=== PATIENT | female | born 2000 | race Hispanic/Latino ===

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

== ENCOUNTER 2018-01-23 07:42 | Emergency (ER) | payer SELFPAY ==
--- NOTE | 2018-01-23 08:29 | EDPHYS ---
Physician Documentation [facility] Name: Theresa Stewart Age: 17 yrs Sex: Female : 2000 Arrival Date: 01/23/2018 Time: 07:45 Bed 11 Private MD: None, None ED Physician Gallo Collier HPI: 01/23 08:25 This 17 yrs old Female presents to ER via Ambulatory with complaints of Sore jr8 Throat. 08:25 The patient presents with sore throat. The patient describes throat pain as burning, jr8 constant. Onset: The symptoms/episode began/occurred acutely, yesterday. Severity of symptoms: At their worst the symptoms were moderate, in the emergency department the symptoms are unchanged. Modifying factors: The symptoms are alleviated by nothing, the symptoms are aggravated by swallowing, Patient's oral intake status: good. Associated signs and symptoms: The patient has no apparent associated signs or symptoms. The patient has not experienced similar symptoms in the past. The patient has not recently seen a physician. Noticed blisters on left foot as well that happened several days before this. Denies rash or lesions anywhere else . 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 - Social history:: Smoking status: Patient/guardian denies using tobacco. - Ebola Screening: : Patient negative for fever greater than or equal to 101.5 degrees Fahrenheit, and additional compatible Ebola Virus Disease symptoms Patient denies exposure to infectious person Patient denies travel to an Ebola-affected area in the 21 days before illness onset No symptoms or risks identified at this time. ROS: 08:25 Eyes: Negative for injury, pain, redness, and discharge, Neck: Negative for injury, jr8 pain, and swelling, Cardiovascular: Negative for chest pain, palpitations, and edema, Respiratory: Negative for shortness of breath, cough, wheezing, and pleuritic chest pain, Abdomen/GI: Negative for abdominal pain, nausea, vomiting, diarrhea, and constipation, Back: Negative for injury and pain, MS/Extremity: Negative for injury and deformity, Neuro: Negative for headache, weakness, numbness, tingling, and seizure. 08:25 ENT: Positive for sore throat, Negative for drainage from ear(s), ear pain, tinnitus, nasal discharge, rhinorrhea, sinus congestion, difficulty swallowing, difficulty handling secretions. 08:25 Skin: Positive for lesions, of the left foot. Exam: 08:25 Head/Face: Normocephalic, atraumatic. Eyes: Pupils equal round and reactive to light, jr8 extra-ocular motions intact. Lids and lashes normal. Conjunctiva and sclera are non-icteric and not injected. Cornea within normal limits. Periorbital areas with no swelling, redness, or edema. Neck: Trachea midline, no thyromegaly or masses palpated. Anterior cervical lymphadenopathy present and tender along with submanibular lymphadenopathy. Supple, full range of motion without nuchal rigidity, or vertebral point tenderness. No Meningismus. Cardiovascular: Regular rate and rhythm with a normal S1 and S2. No gallops, murmurs, or rubs. Normal PMI, no JVD. No pulse deficits. Respiratory: Lungs have equal breath sounds bilaterally, clear to auscultation and percussion. No rales, rhonchi or wheezes noted. No increased work of breathing, no retractions or nasal flaring. Abdomen/GI: Soft, non-tender, with normal bowel sounds. No distension or tympany. No guarding or rebound. No evidence of tenderness throughout. Back: No spinal tenderness. No costovertebral tenderness. Full range of motion. MS/ Extremity: Pulses equal, no cyanosis. Neurovascular intact. Full, normal range of motion. Neuro: Awake and alert, GCS 15, oriented to person, place, time, and situation. Cranial nerves II-XII grossly intact. Motor strength 5/5 in all extremities. Sensory grossly intact. Cerebellar exam normal. Normal gait. 08:25 ENT: External ear(s): are unremarkable, Ear canal(s): are normal, clear, TM's: are normal, no evidence of bulging, no dullness, no erythema, no fluid levels, no hemotympanum, no rupture, normal bony landmarks, normal mobility, Nose: External nose: no obvious acute abnormality, Nasal septum: is midline, Nasal mucosa: moist, Turbinates: are normal, Mouth: Lips: moist, Oral mucosa: pink and intact, moist, Gums: pink, Tongue: is moist, Posterior pharynx: Airway: patent, Tonsils: bilaterally enlarged, with erythema, with exudate, no ulcerations, Uvula: midline, non-edematous, no erythema, swelling, is not appreciated, erythema, that is moderate. 08:25 Skin: Patient has scabbed blistering lesions to sole of left foot. No other rash or lesions noted anywhere else on patients body. Lesions are tender. Mild erythema around them . Vital Signs: 08:08 BP 103 / 65; Pulse 108; Resp 16 S; Temp 99.2(O); Pulse Ox 98% on R/A; iw MDM: 08:06 Patient medically screened. [facility] 08:25 Data reviewed: vital signs, nurses notes, lab test result(s), and as a result, I will jr8 discharge patient. Data interpreted: Pulse oximetry: on room air is 98 %. Interpretation: normal. Counseling: I had a detailed discussion with the patient and/or guardian regarding: the historical points, exam findings, and any diagnostic results supporting the discharge/admit diagnosis, lab results, the need for outpatient follow up, a family practitioner, to return to the emergency department if symptoms worsen or persist or if there are any questions or concerns that arise at home. 01/23 08:23 Order name: Strep seb Administered Medications: No medications were administered Disposition: 17:43 Co-signature as Attending Physician, Gallo Collier MD I agree with the assessment and kdr plan of care. Disposition: 01/23/18 08:29 Discharged to Home. Impression: Other local infections of skin and subcutaneous tissue, Acute tonsillitis. - Condition is Stable. - Discharge Instructions: Tonsillitis. - Prescriptions for Augmentin 875- 125 mg Oral Tablet - take 1 tablet by ORAL route every 12 hours for 10 days; 20 tablet. Bactroban 2 % Topical Ointment - Apply to affected area 1 application by TOPICAL route every 12 hours; 30 gram. - Medication Reconciliation Form, Thank You Letter, Antibiotic Education, Prescription Opioid Use form. - Follow up: Private Physician; When: 2 - 3 days; Reason: Recheck today's complaints, Continuance of care, Re-evaluation by your physician. - Problem is new. - Symptoms have improved. Signatures: Dispatcher [employer] EDBuddy Ferminin, MD MD kdr Pearl Mullen, RN RN Chalino Hernandez PA PA jr8 Car Saunders, RN RN jb4 Corrections: (The following items were deleted from the chart) 08:41 08:29 01/23/2018 08:29 Discharged to Home. Impression: Other local infections of skin jb4 and subcutaneous tissue; Acute tonsillitis. Condition is Stable. Forms are Medication Reconciliation Form, Thank You Letter, Antibiotic Education, Prescription Opioid Use. Follow up: Private Physician; When: 2 - 3 days; Reason: Recheck today's complaints, Continuance of care, Re-evaluation by your physician. Problem is new. Symptoms have improved. jr8
--- NOTE | 2018-01-23 08:29 | ER ---
Nurse's Notes [facility] Name: Theresa Stewart Age: 17 yrs Sex: Female : 2000 Arrival Date: 01/23/2018 Time: 07:45 Bed 11 Private MD: None, None Diagnosis: Other local infections of skin and subcutaneous tissue;Acute tonsillitis Presentation: 01/23 08:06 Presenting complaint: Patient states: has had sore throat since last night, no fever + iw chills, also has blisters on bottom of left foot since Friday. Transition of care: patient was not received from another setting of care. Onset of symptoms was January 23, 2018. Risk Assessment: Do you want to hurt yourself or someone else? Patient reports no desire to harm self or others. Initial Sepsis Screen: Does the patient meet any 2 criteria? No. Patient's initial sepsis screen is negative. Does the patient have a suspected source of infection? No. Patient's initial sepsis screen is negative. Care prior to arrival: None. 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 - Social history:: Smoking status: Patient/guardian denies using tobacco. - Ebola Screening: : Patient negative for fever greater than or equal to 101.5 degrees Fahrenheit, and additional compatible Ebola Virus Disease symptoms Patient denies exposure to infectious person Patient denies travel to an Ebola-affected area in the 21 days before illness onset No symptoms or risks identified at this time. Screenin:10 Abuse screen: Denies threats or abuse. Nutritional screening: No deficits noted. jb4 Tuberculosis screening: No symptoms or risk factors identified. Fall Risk None identified. Assessment: 08:10 General: Appears in no apparent distress. comfortable, Behavior is calm, cooperative, jb4 appropriate for age. Pain: Complains of pain in left foot, throat Pain does not radiate. Pain currently is 5 out of 10 on a pain scale. at worst was 8 out of 10 on a pain scale. Quality of pain is described as stabbing, Pain began 1 day ago. Is intermittent. Neuro: Level of Consciousness is awake, alert, obeys commands, Oriented to person, place, time, situation. Cardiovascular: Heart tones S1 S2 present Patient's skin is warm and dry. Respiratory: Airway is patent Respiratory effort is even, unlabored, Breath sounds are clear bilaterally. Denies shortness of breath labored breathing. GI: No signs and/or symptoms were reported involving the gastrointestinal system. : No signs and/or symptoms were reported regarding the genitourinary system. EENT: Throat is reddened has enlarged tonsils with gag reflex present. Derm: Skin is dry, Skin is normal, Skin temperature is warm Blisters on the sole of the left foot. Musculoskeletal: No signs and/or symptoms reported regarding the musculoskeletal system. Vital Signs: 08:08 BP 103 / 65; Pulse 108; Resp 16 S; Temp 99.2(O); Pulse Ox 98% on R/A; iw ED Course: 07:45 Patient arrived in ED. mr 07:45 None, None is Private Physician. mr 07:58 Pearl Mullen, RN is Primary Nurse. iw 08:06 Chalino White PA [facility]. jr8 08:06 Gallo Collier MD is Attending Physician. jr8 08:08 Triage completed. iw 08:08 Arm band placed on. iw 08:10 Patient has correct armband on for positive identification. Bed in low position. Call jb4 light in reach. Adult w/ patient. Pulse ox on. NIBP on. 08:25 Strep swab sent to lab. jb4 08:40 No provider procedures requiring assistance completed. Patient did not have IV access jb4 during this emergency room visit. Administered Medications: No medications were administered Outcome: 08:29 Discharge ordered by . jr8 08:40 Discharged to home ambulatory. jb4 08:40 Condition: stable 08:40 Discharge instructions given to patient, family, Instructed on discharge instructions, follow up and referral plans. medication usage, Demonstrated understanding of instructions, follow-up care, medications, Prescriptions given X 2. 08:41 Patient left the ED. jb4 Signatures: Trina Granados mr Pearl Mullen, SANJANA RN Chalino White PA PA jr8 Car Saunders RN RN jb4
== END 2018-01-23 08:41 | disposition home or self-care (01) ==
LOC: ER 07:42
DX: J03.90 Acute tonsillitis, unspecified (principal); L08.89 Other specified local infections of the skin and subcutaneous tissue
CPT/HCPCS: 87081; 99283

== ENCOUNTER 2021-04-24 16:32 | Emergency (ER) | payer SELFPAY ==
[2021-04-24 16:55] LABS: Urine Blood 3+ (Negative); Urine Glucose Negative (Negative); Urine Protein 2+ (Negative); Urine Specific Gravity 1.025 (1.005-1.030)
[2021-04-24 17:33] LABS: Urine Bacteria <20 /HPF (<20); Urine Mucus 1+ /HPF (NONE SEEN)
--- NOTE | 2021-04-24 17:44 | EDPHYS ---
Physician Documentation [facility] Name: Theresa Stewart Age: 20 yrs Sex: Female : 2000 Arrival Date: 04/24/2021 Time: 16:42 Bed 12 Private MD: ED Physician Jamal Knott HPI: 04/24 17:54 This 20 yrs old Female presents to ER via Ambulatory with complaints of Pain kb With Urination. 17:54 The patient presents with urinary symptoms, dysuria, hematuria. Onset: The kb symptoms/episode began/occurred yesterday. Modifying factors: The symptoms are alleviated by nothing, the symptoms are aggravated by urinating. Associated signs and symptoms: Pertinent positives: dysuria, hematuria, Pertinent negatives: fever. Severity of symptoms: At their worst the symptoms were mild, in the emergency department the symptoms are unchanged. The patient has not experienced similar symptoms in the past. The patient has not recently seen a physician. 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 - Social history:: Smoking status: Patient denies any tobacco usage or history of. Patient uses alcohol, occasionally. ROS: 17:54 Constitutional: Negative for fever, chills, and weight loss. kb 17:54 : Positive for urinary symptoms, hematuria, burning with urination. 17:54 All other systems are negative. Exam: 17:55 Constitutional: This is a well developed, well nourished patient who is awake, alert, kb and in no acute distress. Head/Face: Normocephalic, atraumatic. ENT: Moist Mucous membranes Respiratory: Respirations even and unlabored. No increased work of breathing, no retractions or nasal flaring. Abdomen/GI: Soft, non-tender. No distention Skin: Warm, dry with normal turgor. Normal color. MS/ Extremity: Pulses equal, no cyanosis. Neurovascular intact. Full, normal range of motion. Neuro: Awake and alert, GCS 15, oriented to person, place, time, and situation. Moves all extremities. Normal gait. Psych: Awake, alert, with orientation to person, place and time. Behavior, mood, and affect are within normal limits. Vital Signs: 16:48 BP 128 / 94; Pulse 102; Resp 18; Temp 98.4(TE); Pulse Ox 99% on R/A; Weight 58.97 kg; ld1 Height 5 ft. 1 in. (154.94 cm); Pain 0/10; 16:48 Body Mass Index 24.56 (58.97 kg, 154.94 cm) ld1 MDM: 16:49 Patient medically screened. kb 17:46 Data reviewed: vital signs, nurses notes. Data interpreted: Pulse oximetry: on room air kb is 99 %. Interpretation: normal. Counseling: I had a detailed discussion with the patient and/or guardian regarding: the historical points, exam findings, and any diagnostic results supporting the discharge/admit diagnosis, lab results, the need for outpatient follow up, a family practitioner, to return to the emergency department if symptoms worsen or persist or if there are any questions or concerns that arise at home. 04/24 16:46 Order name: Urine Microscopic Only; Complete Time: 17:37 kb 04/24 16:55 Order name: Urine Dipstick-Ancillary; Complete Time: 17:02 EDWY 04/24 16:46 Order name: Urine Dipstick-Ancillary (obtain specimen); Complete Time: 17:34 kb 04/24 16:46 Order name: Urine Test (obtain specimen); Complete Time: 17:34 kb 04/24 17:34 Order name: Urine Culture EDMS Administered Medications: No medications were administered Disposition: 23:11 Co-signature as Attending Physician, Jamal Knott MD I agree with the assessment and ming plan of care. Disposition Summary: 04/24/21 17:42 Discharge Ordered Location: Home kb Condition: Stable kb Diagnosis - UTI/ Urinary tract infection, site not specified kb Followup: kb - With: Emergency Department - When: As needed - Reason: Worsening of condition Followup: kb - With: Private Physician - When: 2 - 3 days - Reason: Recheck today's complaints, Continuance of care, Re-evaluation by your physician Discharge Instructions: - Discharge Summary Sheet kb - Urinary Tract Infection, Adult, [id number] kb Forms: - Medication Reconciliation Form kb - Thank You Letter kb - Antibiotic Education kb - Prescription Opioid Use kb Prescriptions: - Pyridium 200 mg Oral Tablet - take 1 tablet by ORAL route every 8 hours for 3 days; 9 tablet; Refills: 0, kb Product Selection Permitted - Macrobid 100 mg Oral Capsule - take 1 capsule by ORAL route every 12 hours for 10 days; 20 capsule; Refills: kb 0, Product Selection Permitted Signatures: Dispatcher [employer] Ana Paula Schneider, PREDATORY ANIMAL TRAPPER-C YESI-Jamal Ryan MD MD cha Dibbern, Lauren, RN RN ld1
--- NOTE | 2021-04-24 17:44 | ER ---
Nurse's Notes [facility] Name: Theresa Stewart Age: 20 yrs Sex: Female : 2000 Arrival Date: 04/24/2021 Time: 16:42 Bed 12 Private MD: Diagnosis: UTI/ Urinary tract infection, site not specified Presentation: 04/24 16:48 Chief complaint: Patient states: I think I have a UTI. Burning when urinating, earlier ld1 I did have lower abdominal pain but not anymore. Coronavirus screen: At this time, the client does not indicate any symptoms associated with coronavirus-19. Ebola Screen: No symptoms or risks identified at this time. Initial Sepsis Screen: Does the patient meet any 2 criteria? No. Patient's initial sepsis screen is negative. Does the patient have a suspected source of infection? No. Patient's initial sepsis screen is negative. Risk Assessment: Do you want to hurt yourself or someone else? Patient reports no desire to harm self or others. Onset of symptoms was April 24, 2021 at 16:49. 16:48 Method Of Arrival: Ambulatory ld1 16:48 Acuity: YADIRA 4 ld1 Triage Assessment: 16:49 General: Appears in no apparent distress. comfortable, Behavior is calm, cooperative, ld1 appropriate for age. Pain: Denies pain. Neuro: Level of Consciousness is awake, alert, obeys commands, Oriented to person, place, time, situation. Cardiovascular: Capillary refill < 3 seconds Patient's skin is warm and dry. Respiratory: Airway is patent Respiratory effort is even, unlabored, Respiratory pattern is regular, symmetrical. GI: Abdomen is flat, non-distended. : Reports burning with urination, urgency, urinary frequency. 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 - Social history:: Smoking status: Patient denies any tobacco usage or history of. Patient uses alcohol, occasionally. Screenin:51 Abuse screen: Denies threats or abuse. Nutritional screening: No deficits noted. ap3 Tuberculosis screening: No symptoms or risk factors identified. Fall Risk None identified. Assessment: 17:50 General: Appears in no apparent distress. comfortable, Behavior is calm, cooperative, ap3 appropriate for age. Pain: Complains of pain in right lower quadrant and left lower quadrant. Neuro: Level of Consciousness is awake, alert, obeys commands, Oriented to person, place, time, situation, Appropriate for age Gait is steady, Speech is normal. Cardiovascular: Patient's skin is warm and dry. Respiratory: Airway is patent Respiratory effort is even, unlabored, Respiratory pattern is regular, symmetrical. : Reports pain with urination. Vital Signs: 16:48 BP 128 / 94; Pulse 102; Resp 18; Temp 98.4(TE); Pulse Ox 99% on R/A; Weight 58.97 kg; ld1 Height 5 ft. 1 in. (154.94 cm); Pain 0/10; 16:48 Body Mass Index 24.56 (58.97 kg, 154.94 cm) ld1 ED Course: 16:42 Patient arrived in ED. am2 16:46 Ana Paula Fowler FNP-C [facility]. kb 16:46 Jamal Knott MD is Attending Physician. kb 16:49 Triage completed. ld1 16:49 Arm band placed on right wrist. ld1 17:33 Latoya South, RN is Primary Nurse. ap3 17:51 Patient has correct armband on for positive identification. Call light in reach. Adult ap3 w/ patient. Pulse ox on. NIBP on. Door closed. Noise minimized. 17:51 No provider procedures requiring assistance completed. Patient did not have IV access ap3 during this emergency room visit. Administered Medications: No medications were administered Outcome: 17:42 Discharge ordered by . kb 17:51 Discharged to home ambulatory, with family. ap3 17:51 Condition: good 17:51 Discharge instructions given to patient, family, Instructed on discharge instructions, follow up and referral plans. medication usage, Demonstrated understanding of instructions, follow-up care, medications, Prescriptions given X 2. 17:52 Patient left the ED. ap3 Signatures: Ana Paula Fowler FNP-C FNP-Ckb Moreno, Amanda am2 Latoya South RN RN ap3 Malia Rosales, RN RN ld1
[2021-04-24 18:38] VITALS: BP 128/94; TEMP 98.4; O2SAT 99
== END 2021-04-24 17:52 | disposition home or self-care (01) ==
LOC: ER 16:32
DX: N39.0 Urinary tract infection, site not specified (principal)
CPT/HCPCS: 81003; 81015; 87086; 87088; 99283

== ENCOUNTER 2021-09-30 19:51 | Emergency (ER) | payer SELFPAY ==
[2021-09-30] MEDS ORDERED: TETANUS & DIPHTHERIA TOX,ADULT 0.5 ML VIAL ONE ×2 (20:51→22:08)
[2021-09-30] MEDS ORDERED: LIDOCAINE 1% MPF 5 ML VIAL ONE (20:55)
--- NOTE | 2021-09-30 21:20 | ER ---
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 Coronavirus screen: At this time, the client does not indicate any symptoms associated with coronavirus-19. Ebola Screen: No symptoms or risks identified at this time. Initial Sepsis Screen: Does the patient meet any 2 criteria? No. Patient's initial sepsis screen is negative. Does the patient have a suspected source of infection? No. Patient's initial sepsis screen is negative. Risk Assessment: Do you want to hurt yourself or someone else? Patient reports no desire to harm self or others. Onset of symptoms was September 30, 2021. 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 - Social history:: Smoking status: Patient denies any tobacco usage or history of. Screenin:46 Abuse screen: Denies threats or abuse. Denies injuries from another. Nutritional eb1 screening: No deficits noted. Tuberculosis screening: No symptoms or risk factors identified. Fall Risk None identified. Assessment: 21:45 General: Appears in no apparent distress. Behavior is calm, cooperative, appropriate eb1 for age. Pain: Complains of pain in left hand Pain currently is 5 out of 10 on a pain scale. Neuro: No deficits noted. Cardiovascular: No deficits noted. Respiratory: No deficits noted. GI: No deficits noted. No signs and/or symptoms were reported involving the gastrointestinal system. : No deficits noted. No signs and/or symptoms were reported regarding the genitourinary system. EENT: No deficits noted. No signs and/or symptoms were reported regarding the EENT system. Derm: No deficits noted. No signs and/or symptoms reported regarding the dermatologic system. Musculoskeletal: No deficits noted. No signs and/or symptoms reported regarding the musculoskeletal system. Injury Description: Laceration sustained to left hand is clean. Vital Signs: 20:15 BP 120 / 91; Pulse 98; Resp 16; Temp 99(TE); Pulse Ox 100% on R/A; Weight 54.43 kg (R); lp1 Height 5 ft. 1 in. (154.94 cm); 22:05 Pain 4/10; eb1 20:15 Body Mass Index 22.67 (54.43 kg, 154.94 cm) lp1 ED Course: 19:53 Patient arrived in ED. kz 20:16 Triage completed. lp1 20:17 Freedom Soto NP is PHCP. pm1 20:17 Hadley Becerra MD is Attending Physician. pm1 20:17 Arm band placed on. lp1 21:46 Assist provider with laceration repair on left hand using sutures. Set up tray. eb1 Performed by Freedom Soto HAT PRESSER Dressed with 4X4s, Kerlix, Patient tolerated well. 21:47 Patient has correct armband on for positive identification. eb1 21:47 Patient did not have IV access during this emergency room visit. 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 Exp: eb1 09/01/2023. Lot #: [id number]. } Route: IM; Site: right deltoid; 22:05 Follow up: Pain 4/10 Adult eb1 Outcome: 21:20 Discharge ordered by . pm1 21:47 Condition: good eb1 22:06 Discharged to home ambulatory. eb1 22:06 Discharge instructions given to patient, Instructed on discharge instructions, wound care, Demonstrated understanding of instructions, follow-up care, medications, wound care, Prescriptions given X 1. 22:06 Patient left the ED. eb1 Signatures: Janet Bernabe RN RN lp1 Freedom Soto NP HAT PRESSER pm1 Abraham, Lisa, RN RN eb1 Cooper, Cierra kz
--- NOTE | 2021-09-30 21:20 | EDPHYS ---
Physician Documentation [facility] Name: Theresa Stewart Age: 21 yrs Sex: Female : 2000 Arrival Date: 09/30/2021 Time: 19:53 Bed 11 Private MD: ED Physician Hadley Becerra HPI: 09/30 20:37 This 21 yrs old Female presents to ER via Ambulatory with complaints of pm1 Laceration To Hand - Left. 20:37 The patient or guardian reports a laceration. The complaints affect the left hand. pm1 Context: The problem was sustained at home, resulted from Cutting candy bag with a pocket knife. Onset: The symptoms/episode began/occurred just prior to arrival. Modifying factors: The symptoms are alleviated by pressure to area, the symptoms are aggravated by nothing. Associated signs and symptoms: Pertinent negatives: cyanosis distally, decreased sensation distally, numbness distally, tingling distally, Decreased range of motion. Severity of symptoms: in the emergency department the symptoms have improved. The patient has not experienced similar symptoms in the past. The patient has not recently seen a physician. 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 - Social history:: Smoking status: Patient denies any tobacco usage or history of. ROS: 20:37 Constitutional: Negative for fever, chills, and weight loss, Cardiovascular: Negative pm1 for chest pain, palpitations, and edema, Respiratory: Negative for shortness of breath, cough, wheezing, and pleuritic chest pain. 20:37 Neuro: Negative for headache, weakness, numbness, tingling, and seizure. 20:37 MS/extremity: Positive for laceration, pain, of the left hand, Negative for decreased range of motion, deformity. 20:37 Skin: Positive for laceration(s), of the left hand. 20:37 All other systems are negative. Exam: 20:37 Constitutional: This is a well developed, well nourished patient who is awake, alert, pm1 and in no acute distress. Head/Face: Normocephalic, atraumatic. 20:37 Cardiovascular: Exam negative for acute changes, Rate: normal, Rhythm: regular, Pulses: no pulse deficits are appreciated, Heart sounds: normal. 20:37 Respiratory: Exam negative for acute changes, respiratory distress, shortness of breath. 20:37 Musculoskeletal/extremity: ROM: full active range of motion, in the left little finger, left ring finger, left middle finger, left index finger and left thumb, full passive range of motion, in the left little finger, left ring finger, left middle finger, left index finger and left thumb. 20:37 Skin: Appearance: normal except for affected area, injury, laceration(s), the wound is approximately 1.5 cm(s), with a depth of 0.5 cm(s), of the Base of left thumb, that can be described as clean, no foreign body, linear, with mild bleeding. Vital Signs: 20:15 BP 120 / 91; Pulse 98; Resp 16; Temp 99(TE); Pulse Ox 100% on R/A; Weight 54.43 kg (R); lp1 Height 5 ft. 1 in. (154.94 cm); 22:05 Pain 4/10; eb1 20:15 Body Mass Index 22.67 (54.43 kg, 154.94 cm) lp1 Laceration: 21:21 Wound Repair of 1.5cm ( 0.6in ) subcutaneous laceration to Base of left thumb. Linear pm1 shaped.. Distal neuro/vascular/tendon intact. Anesthesia: Local anesthetic administered with 2 mls of 1% lidocaine. Wound prep: Extensive cleansing with betadine with hibiclenz by me, Wound irrigation with saline by ms, Wound explored extensively, Copious irrigation. Skin closed with 3 4-0 Prolene using simple sutures and sterile technique. Dressed with Neosporin, 4x4's. Patient tolerated well. MDM: 20:17 Patient medically screened. pm1 21:17 Data reviewed: vital signs. Data interpreted: Pulse oximetry: on room air is 100 %. pm1 Interpretation: normal. Counseling: I had a detailed discussion with the patient and/or guardian regarding: the historical points, exam findings, and any diagnostic results supporting the discharge/admit diagnosis, the need for outpatient follow up, to return to the emergency department if symptoms worsen or persist or if there are any questions or concerns that arise at home. 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 Exp: eb1 09/01/2023. Lot #: [id number]. } Route: IM; Site: right deltoid; 22:05 Follow up: Pain 09/30 Adult eb1 Disposition: 10/01 03:37 Co-signature as Attending Physician, Hadley Becerra MD. [facility] Disposition Summary: 09/30/21 21:20 Discharge Ordered Location: Home pm1 Problem: new pm1 Symptoms: have improved pm1 Condition: Stable pm1 Diagnosis - Laceration without foreign body of left hand pm1 Followup: pm1 - With: Emergency Department - When: As needed - Reason: Worsening of condition Followup: pm1 - With: Private Physician - When: 10 - 14 days - Reason: Recheck today's complaints, Continuance of care, Staple/Suture removal, Re-evaluation by your physician Discharge Instructions: - Discharge Summary Sheet pm1 - Laceration Care, Adult pm1 Forms: - Medication Reconciliation Form pm1 - Thank You Letter pm1 - Antibiotic Education pm1 - Prescription Opioid Use pm1 Prescriptions: - Cephalexin 500 mg Oral Capsule - take 1 capsule by ORAL route every 8 hours for 10 days; 30 capsule; Refills: 0, pm1 Product Selection Permitted Signatures: Janet eBrnabe RN RN 1 Freedom Soto, [facility] RN pm1 Lisa Rosario RN RN eb1 Hadley Becerra MD MD 7
[2021-09-30 22:43] VITALS: BP 120/91; TEMP 99; O2SAT 100
== END 2021-09-30 22:06 | disposition home or self-care (01) ==
LOC: ER 19:51
PROC: 0JQK0ZZ Repair Left Hand Subcutaneous Tissue and Fascia, Open Approach (ICD-10-PCS; principal; 2021-09-30)
DX: S61.412A Laceration without foreign body of left hand, initial encounter (principal); W26.0XXA Contact with knife, initial encounter; Y92.009 Unspecified place in unspecified non-institutional (private) residence as the place of occurrence of the external cause; Z23 Encounter for immunization
CPT/HCPCS: 90471; 90714; 99283